=== PATIENT | male | born 1955 | race Caucasian/White ===

== ENCOUNTER → 2017-09-09 | Outpatient (CLI) | payer BC ==
[~2017-09-09] MED LIST: ALBUTEROL-200 PUFFS/; ATORVASTATIN CA20 M1 PO; BIOTIN2500 MCG; HYDROCHLOROTHIA1 TAB PO; LEVOTHYROXINE0.05 MG; METFORMIN 500M500 M1; OCUVITE ADULT 51 SGL; SERTRALINE100 M1; SOTALOL HCL AF80 MG PO; ULTRAM50 MG PO
== END ==
LOC: LAB 09:25
DX: I10 Essential (primary) hypertension (principal); E78.5 Hyperlipidemia, unspecified; D45 Polycythemia vera

== ENCOUNTER → 2017-09-14 | Emergency (ER) | payer BC ==
--- OUTSIDE RECORDS SUMMARY | 2017-09-14 11:25 | External Medical Summary Rpt | CCD ---
Demographics Preferred Language Malay Marital Status Unknown Confucianism Affiliation Unknown Race Unknown Ethnic Group Unknown Author Author , BHARATH SINHA Address Unknown Phone Immunization No patient found.
--- OUTSIDE RECORDS SUMMARY | 2017-09-14 11:25 | External Medical Summary Rpt | CCD ---
Demographics Preferred Language Turkmen Marital Status Unknown Advent Affiliation Unknown Race Unknown Ethnic Group Unknown Author Author , BHARATH SINHA Address Unknown Phone Immunization No patient found.
--- OUTSIDE RECORDS SUMMARY | 2017-09-14 11:25 | External Medical Summary Rpt ---
Author Author BHARATH Galindo, [employer] Organization [employer] Address Unknown Phone Unavailable Results Thyroxine (T4) free [Mass/volume] in Serum or Plasma Observa Value Referen Units Interpr Notes Date tion ce etation Range Thyroxine 0.76 - ng/dL Normal No Sep 09 (T4) 1.46 informati 2017 9:28 free on in AM [Mass/vol source ume] in data Serum or Plasma Thyroxine (T4) [Mass/volume] in Serum or Plasma Observa Value Referen Units Interpr Notes Date tion ce etation Range Thyroxine 4.7 - ug/dl Normal No Sep 09 (T4) 13.3 informati 2016 9:28 [Mass/vol on in AM ume] in source Serum or data Plasma Thyrotropin [Units/volume] in Serum or Plasma Observa Value Referen Units Interpr Notes Date tion ce etation Range Thyrotrop 0.358 - uIU/ml No No Sep 09 in 3.740 informati informati 2016 9:28 [Units/vo on in on in AM lume] in source source Serum or data data Plasma Basic metabolic panel in Blood Observa Value Referen Units Interpr Notes Date ti ce etation Range Urea 7 - 18 mg/dL Normal No Jun 08 nitrogen informati 2016 9:18 [Mass/vol on in AM ume] in source Serum or data Plasma Calcium 8.5 - mg/dL Normal No Jun 08 [Mass/vol 10.1 informati 2016 9:18 ume] in on in AM Serum or source Plasma data Chloride 98 - 107 mmoL/L Normal No Jun 08 [Moles/vo informati 2016 9:18 lume] in on in AM Serum or source Plasma data Carbon 21.0 - mmoL/L High No Jun 08 dioxide, 32.0 informati 2016 9:18 total on in AM [Moles/vo source lume] in data Serum or Plasma Creatinin 0.70 - mg/dL Normal No Jun 08 e 1.30 informati 2016 9:18 [Mass/vol on in AM ume] in source Serum or data Plasma Estimated >60 ML/MIN No REFERENCE Jun 08 informati RANGE: 2017 9:18 glomerula on in >60 AM r source ML/MIN/1. filtratio data 73 SQUARE n rate METERSIf (GF this patient is -A merican, then multiply theresult by 1.210. Glucose 74 - 106 mg/dL High No Jun 08 [Mass/vol informati 2016 9:18 ume] in on in AM Serum or source Plasma data Potassium 3.5 - 5.1 mmoL/L Normal No Jun 08 informati 2016 9:18 [Moles/vo on in AM lume] in source Serum or data Plasma Sodium 136 - 145 mmoL/L Normal No Jun 08 [Moles/vo informati 2016 9:18 lume] in on in AM Serum or source Plasma data Thyroxine (T4) free [Mass/volume] in Serum or Plasma Observa Value Referen Units Interpr Notes Date tion ce etation Range Thyroxine 0.76 - ng/dL Normal No Jun 08 (T4) 1.46 informati 2016 9:18 free on in AM [Mass/vol source ume] in data Serum or Plasma Lipid 1996 panel in Serum or Plasma Observa Value Referen Units Interpr Notes Date tion ce etation Range Cholester < 200 mg/dL No No Jun 08 ol informati informati 2016 9:18 [Moles/vo on in on in AM lume] in source source Unspecifi data data ed specimen Cholester 40 - 60 MG/DL Normal No Jun 08 ol in HDL informati 2016 9:18 on in AM [Mass/vol source ume] in data Serum or Plasma Cholester 0 - 130 mg/dL Normal No Jun 08 ol in LDL informati 2016 9:18 on in AM [Mass/vol source ume] in data Serum or Plasma by calculati on Triglycer 30 - 200 mg/dL Normal No Jun 08 deena informati 2016 9:18 [Moles/vo on in AM lume] in source Serum or data Plasma Cholester 0 - 40 No Normal No Jun 08 ol in informati informati 2016 9:18 VLDL on in on in AM [Mass/vol source source ume] in data data Serum or Plasma Hepatic function 2000 panel in Serum or Plasma Observa Value Referen Units Interpr Notes Date tion ce etation Range Albumin 3.4 - 5.0 gm/dL Normal No Jun 08 [Mass/vol informati 2017 9:18 ume] in on in AM Serum or source Plasma data Alkaline 46 - 116 U/L Normal No Jun 08 phosphata informati 2016 9:18 se on in AM [Enzymati source c data activity/ volume] in Serum or Plasma Bilirubin 0.0 - 0.2 mg/dL Normal No Jun 08 .direct informati 2017 9:18 [Mass/vol on in AM ume] in source Serum or data Plasma Bilirubin 0 - 0.9 mg/dL Normal No Jun 08 .indirect informati 2016 9:18 on in AM [Mass/vol source ume] in data Serum or Plasma Bilirubin 0.2 - 1.0 mg/dL Normal No Jun 08 .total informati 2017 9:18 [Mass/vol on in AM ume] in source Serum or data Plasma Aspartate 15 - 37 U/L Normal No Jun 08 informati 2016 9:18 aminotran on in AM sferase source [Enzymati data c activity/ volume] in Serum or Plasma Alanine 12 - 78 U/L Normal No Jun 08 aminotran informati 2016 9:18 sferase on in AM [Enzymati source c data activity/ volume] in Serum or Plasma Protein 6.4 - 8.2 gm/dL Normal No Jun 08 [Mass/vol informati 2016 9:18 ume] in on in AM Serum or source Plasma data Thyrotropin [Units/volume] in Serum or Plasma Observa Value Referen Units Interpr Notes Date tion ce etation Range Thyrotrop 0.358 - uIU/ml High No Jun 08 in 3.740 informati 2016 9:18 [Units/vo on in AM lume] in source Serum or data Plasma CBC W Auto Differential panel in Blood Observa Value Referen Units Interpr Notes Date tion ce etation Range Basophils 0 - 0.2 K/MM3 Normal No Jun 08 informati 2016 9:18 [#/volume on in AM ] in source Blood by data Automated count Basophils 0.1 - 2.0 % Normal No Jun 08 /100 informati 2016 9:18 leukocyte on in AM s in source Blood by data Automated count Eosinophi 0.0 - 0.4 K/mm3 Normal No Jun 08 ls informati 2016 9:18 [#/volume on in AM ] in source Blood by data Automated count Eosinophi 0.1 - % Normal No Jun 08 ls/100 12.0 informati 2017 9:18 leukocyte on in AM s in source Blood by data Automated count Granulocy 1.3 - 8.0 K/mm3 Normal No Jun 08 sariah informati 2016 9:18 [#/volume on in AM ] in source Blood by data Automated count Granulocy 37.0 - % Normal No Jun 08 sariah/100 80.0 informati 2016 9:18 leukocyte on in AM s in source Blood by data Automated count Hematocri 42.0 - % Normal No Jun 08 t [Volume 52.0 informati 2016 9:18 on in AM Fraction] source of Blood data Hemoglobi 14.1 - g/dL Normal No Jun 08 n 18.0 informati 2017 9:18 [Mass/vol on in AM ume] in source Blood data Lymphocyt 0.7 - 4.5 K/mm3 Normal No Jun 08 es informati 2016 9:18 [#/volume on in AM ] in source Unspecifi data ed specimen by Automated count Lymphocyt 10 - 50 % Normal No Jun 08 es informati 2016 9:18 [#/volume on in AM ] in source Unspecifi data ed specimen by Automated count Erythrocy 27 - 31.2 pg Normal No Jun 08 te mean informati 2017 9:18 corpuscul on in AM ar source hemoglobi data n [Entitic mass] Erythrocy 31.8 - g/dl Normal No Jun 08 te mean 35.4 informati 2016 9:18 corpuscul on in AM ar source hemoglobi data n concentra tion [Mass/vol ume] by Automated count Erythrocy 82.2 - fl Normal No Jun 08 te mean 97.8 informati 2016 9:18 corpuscul on in AM ar volume source [Entitic data volume] by Automated count Monocytes 0.1 - 1.0 K/mm3 Normal No Jun 08 informati 2017 9:18 [#/volume on in AM ] in source Blood by data Automated count Monocytes 1.7 - 9.3 % Normal No Jun 08 /100 informati 2017 9:18 leukocyte on in AM s in source Blood by data Automated count Platelet 7.4 - fl Normal No Jun 08 mean 10.4 informati 2016 9:18 volume on in AM [Entitic source volume] data in Blood by Automated count Platelets 142 - 424 K/mm3 Normal No Jun 08 informati 2017 9:18 [#/volume on in AM ] in source Blood data Erythrocy 4.6 - 6.2 M/mm3 Normal No Jun 08 sariah informati 2016 9:18 [#/volume on in AM ] in source Amniotic data fluid Erythrocy 11.5 - % Normal No Jun 08 te 17.5 informati 2016 9:18 distribut on in AM ion width source [Entitic data volume] by Automated count Leukocyte 4.8 - K/MM3 Normal No Jun 08 s 10.8 informati 2016 9:18 [#/volume on in AM ] in source Blood data
--- OUTSIDE RECORDS SUMMARY | 2017-09-14 11:25 | External Medical Summary Rpt | CCD ---
Author Author [employer] Address Unknown Phone Unavailable Purpose Continuity of Care Document - through 2016
--- OUTSIDE RECORDS SUMMARY | 2017-09-14 11:25 | External Medical Summary Rpt | CCD ---
Author Author , BHARATH SINHA Address Unknown Phone Purpose Continuity of Care Document - 06-08-2017 through 2016 Problems Code Diagnosis DOS Provider Status N20.0 CALCULUS OF KIDNEY R31.9 HEMATURIA, UNSPECIFIED Results Labs Lab Lab Date Result Refere Interp Status Commen Order Detail nces retati t Range on Serum or plasma thyroid stimulating horm (09-09-2017 09:28) Serum 10--2 = 2.97 0.358-3 complet or 017 uIU/ml .740 ed plasma 09:28 thyroid stimula ting horm Thyroxine (09-09-2017 09:28) Thyroxi --2 = 5.7 4.7-13. complet ne 017 ug/dl 3 ed 09:28 Serum or plasma free thyroxine (T4) hansel (09-09-2017 09:28) Serum 10-19-2 = 0.84 0.76-1. complet or 017 ng/dL 46 ed plasma 09:28 free thyroxi ne (T4) hansel
--- OUTSIDE RECORDS SUMMARY | 2017-09-14 11:25 | External Medical Summary Rpt | CCD ---
Author Author , BHARATH SINHA Address Unknown Phone [email or web address] Purpose Continuity of Care Document - 06-08-2017 [...]
== END ==
LOC: UTC 11:08 → UTC.OUT 11:12 → UTC 11:12
DX: Z23 Encounter for immunization (principal)
CPT/HCPCS: Q2038

== ENCOUNTER 2017-09-27 13:07 | Emergency (ER) | payer BC ==
[~2017-09-27] VITALS: Ht 172.7 cm; Wt 107.0 kg
--- OUTSIDE RECORDS SUMMARY | 2017-09-27 13:12 | External Medical Summary Rpt | CCD ---
Demographics Preferred Language Malay Marital Status Unknown Amish Affiliation Unknown Race Unknown Ethnic Group Unknown Author Author , BHARATH SINHA Address Unknown Phone Immunization No patient found.
--- OUTSIDE RECORDS SUMMARY | 2017-09-27 13:12 | External Medical Summary Rpt | CCD ---
Demographics Preferred Language Sinhala Marital Status Unknown Rastafari Affiliation Unknown Race Unknown Ethnic Group Unknown Author Author , BHARATH SINHA Address Unknown Phone Immunization No patient found.
--- OUTSIDE RECORDS SUMMARY | 2017-09-27 13:12 | External Medical Summary Rpt ---
Author Author BHARATH Galindo, [employer] Address Unknown Phone [...]
--- OUTSIDE RECORDS SUMMARY | 2017-09-27 13:12 | External Medical Summary Rpt | CCD ---
Author Author , BHARATH SINHA Address Unknown Phone [email or web address] Purpose Continuity of Care Document - 06-08-2017 through 2016 Problems Code Diagnosis DOS Provider Status N20.0 CALCULUS OF KIDNEY R31.9 HEMATURIA, UNSPECIFIED Results Labs Lab Lab Date Result Refere Interp Status Commen Order Detail nces retati t Range on Serum or plasma thyroid stimulating horm (09-09-2017 09:28) Serum 10-19-2 = 2.97 0.358-3 complet or 017 uIU/ml .740 ed plasma 09:28 thyroid stimula ting horm Thyroxine (09-09-2017 09:28) Thyroxi 10--2 = 5.7 4.7-13. complet ne 017 ug/dl 3 ed 09:28 Serum or plasma free thyroxine (T4) hansel (09-09-2017 09:28) Serum 10-19-2 = 0.84 0.76-1. complet or 017 ng/dL 46 ed plasma 09:28 free thyroxi ne (T4) hansel
--- OUTSIDE RECORDS SUMMARY | 2017-09-27 13:12 | External Medical Summary Rpt | CCD ---
Author Author , BHARATH SINHA Address Unknown Phone [email or web address] Purpose Continuity of Care Document - 06-08-2017 [...]
--- NOTE | 2017-09-27 14:11 | Urgent Treatment Center Report ---
History of Present Issue Date/Time Seen by Provider 09/27/17 1411 Visit Reason Pt arrived:Walked Presenting Problem:PT C/O LEFT TESTICLE SWELLING. PT THINKS HE HAS EPIDIDTYMITIS. Location if Accident: Onset of symptoms date/time:/ or onset unknown for:MEDICAL HX UNKNOWN Have you (or family members/close friends) recently traveled outside the [place]? N If Yes, where/when: Have you had exposure to infectious disease within the past month? TB? Other? Specify: c/o mild pain and swelling "in the tube behind my left testicle". First noticed mild pain yesterday. hx skin cancer and reports he knows how important self testicular exams are. While in the shower last night, examined self. Noticed pain only behind left testicle and a small "less then a pea" knot in the area where tender "right in that tube". Pt reports he "did a little internet research " and thinks he has epididymitis and "really only here for an antibiotic". PCP not available today. Pain no worse today. The worst w/ palpation. Pt reporting hx of ED and therefore, not sexually active with either males or females. No ejaculations. Denies any possiblity or concern for STI. No scrotal swelling. No testicle pain. No redness. Denies pain in/near penis or urethra. No pain with urination. No urinary frequency or penile discharge. Source patient Exam Limitations no limitations ALLERGIES Coded Allergies: No Known Allergies (02/13/16) Home Medications Active Scripts Tramadol Hcl (Ultram 50MG) 50 MG PO QIDP PRN pain #12 TAB Prov: 10/26/16 Reported Medications LISINOPRIL/HYDROCHLOROTHIAZIDE (Lisinopril-Hctz 10-12.5 MG Tab) 1 TAB PO DAILY #90 Atorvastatin Calcium 20 MG PO DAILY #90 SOTALOL HCL (Sotalol AF) 80 MG PO DAILY #180 Albuterol (Albuterol-Hfa Inhaler) VIT C/VIT E/LUTEIN/MIN/OMEGA-3 (Ocuvite Softgel) Biotin 5,000 History Medical History General CAD? No Angina: No DC: No Hypertension? Yes Hyperlipidemia? Yes CHF? No DVT? No PE? No COPD? No Asthma? No Anemia? No GERD? No Gastric ulcers? No GI Bleed? No Hernia? No Thyroid Problems? No Hypothyroidism? No CVA? No Seizures? No Diabetes? No UTI? No Stones? No BPH? No GB Disease: No Nephritic Syndrome? No Asplenia? No Hepatitis? No Sickle Cell Disease? No Arthritis? Yes Migraines? No Cataracts? No Glaucoma? No MRSA? No HIV? No TB? No Anxiety? No Depression? No Cancer? Yes Site: SKIN More? Yes Additional hx: AFIB Immunization HX DT/Tetanus Unknown Flu 2017-18FSN Surgical Hx Previous Surgery?Y Hernia Repair SKIN CANCER SCALP Family History Family HX Hypertension Yes Cancer Yes Social History Smoking Hx Smoker: Never Smoker Tobacco: No Alcohol Alcohol: Yes Review of Systems All Other Systems Reviewed and Negative (as appropriate for CC) Constitutional denies fever, denies malaise Respiratory denies shortness of breath Gastrointestinal denies abdominal pain, denies constipation, denies diarrhea, denies nausea, denies vomiting Genitourinary see HPI. denies: hesitancy, hematuria, genital lesions. Musculoskeletal denies back pain Skin see HPI Psychiatric/Neurological denies numbness, denies tingling Physical Exam Vital Signs Vital Signs Date Time Temp Pulse Resp B/P Pulse O2 O2 Flow FiO2 Ox Delivery Rate 09/27 1554 98.2 64 18 109/75 100 09/27 1307 98.2 64 18 109/75 100 General Appearance normal appearance, no apparent distress Respiratory Status No: respiratory distress. Cardiovascular no peripheral edema Back no CVA tenderness, gait normal Male Genitalia normal genitalia (w/ exception of tenderness ), TTP very localized to left epididymis only, no other pain throughout scrotum, neither testicle tender, no swelling/bumps/lumps palpated Nurse present during exam? Yes Neurologic alert, oriented x 3 Skin intact, normal color, warm/dry Medical Decision Making LABS/Meds/Orders Pt receiving controlled substance in ED? No Results/Orders Laboratory Tests 09/27/17 1517: Urine Color YELLOW, Urine Appearance CLEAR, Urine pH 5.0, Ur Specific [place] 1.010, Urine Protein NEGATIVE, Urine Ketones NEGATIVE, Urine Blood TRACE H, Urine Nitrate NEGATIVE, Urine Bilirubin NEGATIVE, Urine Urobilinogen 0.2, Ur Leukocyte Esterase 1+ H, Urine Glucose NEGATIVE Orders Procedure Date/time Status CULTURE, URINE 09/27 1550 Active [facility] URINE DIPSTICK 09/27 1517 Complete Departure Departure Time of Disposition 1550 Disposition DC Home or Self Care(routine) Clinical Impression Primary Impression: Left epididymitis Secondary Impressions: Hematuria Qualifiers: Hematuria type: other microscopic Qualified Code: R31.29 - Other microscopic hematuria Condition STABLE Referrals Mina VASQUEZ,A.C. (Family) Immediately for new or worsening symptoms but otherwise, call today and schedule a follow up appointment within the next week to ensure resolution as if not, may need referral to urologist Patient Instructions DI for Epididymitis, DI for Hematuria Additional Instructions Read attached education Tylenol or ibuprofen as needed as long as you providers allow you to take it. Scrotal elevation as discussed Start antibiotic immediately and be sure to complete the full 10 days Be sure to follow up on your symptoms but also the trace blood found in your urine. Discharge Counseling Counseled pt/family regarding diagnosis, test results, medications/RX, home care, follow up needs Prescriptions Current Visit Scripts Levofloxacin (Levaquin 500MG) 500 MG PO DAILY #10 TAB at 0134
[2017-09-27 15:31] LABS: URINE BILIRUBIN - DIPSTICK NEGATIVE (NEG); URINE BLOOD TRACE (NEG)
[2017-09-27] MEDS ORDERED: LEVAQUIN500 MG PO (15:53)
[2017-09-27 15:54] VITALS: BP 109/75
== END 2017-09-27 15:55 | disposition home or self-care (01) ==
LOC: UTC 13:07
PROVIDERS: Nurse Practitioner Family
DX: N45.1 Epididymitis (principal); I10 Essential (primary) hypertension; I48.0 Paroxysmal atrial fibrillation; E78.5 Hyperlipidemia, unspecified